=== PATIENT | male | born 1955 | race Caucasian/White ===

== ENCOUNTER 2016-09-29 13:57 | Inpatient (IN) | payer OTHER ==
[~2016-09-29] VITALS: Ht 172.7 cm; Wt 70.6 kg
[2016-09-29] MEDS ORDERED: SODIUM CHLORIDE 0.9% 250 ML IV ONE (16:00)
[2016-09-29] MEDS ORDERED: CEFTRIAXONE 1 GM VIAL ONE (16:00)
[2016-09-29] MEDS ORDERED: AZITHROMYCIN 500 MG VIAL IV ONE (16:00)
[2016-09-29] MEDS ORDERED: SODIUM CHLORIDE 0.9% 100 ML IV ONE (16:01)
[2016-09-29] MEDS ORDERED: NEB-ALBUTEROL 2.5 MG/3 ML INH ONE ×2 (16:34→17:46)
[2016-09-29] MEDS ORDERED: DUONEB INH ONE (17:46)
[2016-09-29] MEDS ORDERED: MORPHINE 4 MG/ML SYR ONE (18:21)
[2016-09-29] MEDS ORDERED: SALINE FLUSH 10 ML FLUSH PRN (19:35)
[2016-09-29] MEDS ORDERED: NICOTINE 21 MG/24 HR TRANSDERM ONE (20:24)
[2016-09-29 22:13] VITALS: BP_SYST 106; BP_SYST 110; RESP 18; TEMP 98.4
[2016-09-29 22:15] VITALS: Ht 172.7 cm; Wt 70.6 kg
[2016-09-29] MEDS: DUONEB INH SCH (23:36)
[2016-09-29] MEDS: NEB-BROVANA 15 MCG/2 ML INH SCH (23:37)
[2016-09-30 00:27] VITALS: RESP 16
[2016-09-30] MEDS: BACLOFEN 10 MG TAB PO PRN ×3 (02:12→17:56)
[2016-09-30] MEDS: DUONEB INH SCH ×6 (02:29→23:26)
[2016-09-30 04:19] VITALS: BP_SYST 102; RESP 20; TEMP 97.5
[2016-09-30] MEDS: Hydrocodone/APAP 10/325 MG TAB PO PRN ×4 (04:27→23:23)
[2016-09-30] MEDS: SODIUM CHLORIDE 0.9% FLUSH BAG 500 ML IV SCH (04:29)
[2016-09-30] MEDS ORDERED: MISSING DOSE XX ONE ×2 (05:05→23:15)
[2016-09-30] MEDS: DIPHENHYDRAMINE 25 MG CAP PO PRN ×2 (06:44→20:07)
[2016-09-30] MEDS: SALINE FLUSH 10 ML FLUSH SCH ×3 (06:59→20:07)
[2016-09-30] MEDS: NEB-BROVANA 15 MCG/2 ML INH SCH ×2 (07:19→19:45)
[2016-09-30 07:48] VITALS: BP_SYST 134; RESP 20; TEMP 98.1
[2016-09-30] MEDS: ENOXAPARIN 40 MG/0.4 ML SYR SUBQ SCH (09:00)
[2016-09-30] MEDS: NICOTINE 21 MG/24 HR TRANSDERM SCH (09:57)
[2016-09-30] MEDS: CEFTRIAXONE 1 GM in SODIUM CHLORIDE 0.9% 50 ML IV SCH (09:57)
[2016-09-30] MEDS: amLODIPine 5 MG TAB PO SCH (09:58)
[2016-09-30] MEDS: PAROXETINE HCL 10 MG TAB PO SCH (09:59)
[2016-09-30] MEDS: BUSPIRONE HCL 15 MG TAB PO SCH ×2 (09:59→20:07)
[2016-09-30] MEDS: GABAPENTIN 600 MG TAB PO SCH ×3 (10:00→20:07)
[2016-09-30] MEDS: GUAIFEN/DM 600/30 TAB PO SCH (10:00)
[2016-09-30 11:10] VITALS: BP_SYST 109; RESP 18; TEMP 98.5
[2016-09-30] MEDS ORDERED: ONDANSETRON 4 MG VIAL IV PUSH PRN (12:25)
[2016-09-30 16:36] VITALS: BP_SYST 113; RESP 20; TEMP 98.9
[2016-09-30 20:03] VITALS: BP_SYST 125; RESP 18; TEMP 98.4
[2016-10-01] MEDS: DUONEB INH SCH ×4 (02:30→15:00)
[2016-10-01] MEDS: DIPHENHYDRAMINE 25 MG CAP PO PRN (02:36)
[2016-10-01] MEDS: BACLOFEN 10 MG TAB PO PRN (02:36)
[2016-10-01 04:02] VITALS: BP_SYST 133; RESP 18; TEMP 97.3
[2016-10-01] MEDS: SODIUM CHLORIDE 0.9% FLUSH BAG 500 ML IV SCH (05:46)
[2016-10-01] MEDS: Hydrocodone/APAP 10/325 MG TAB PO PRN (05:47)
[2016-10-01] MEDS ORDERED: MISSING DOSE XX ONE (06:00)
[2016-10-01 07:16] VITALS: BP_SYST 155; RESP 18; TEMP 97.8
[2016-10-01] MEDS: NEB-BROVANA 15 MCG/2 ML INH SCH (07:33)
[2016-10-01] MEDS: CEFTRIAXONE 1 GM in SODIUM CHLORIDE 0.9% 50 ML IV SCH (08:57)
[2016-10-01] MEDS: SALINE FLUSH 10 ML FLUSH SCH (08:57)
[2016-10-01] MEDS: GABAPENTIN 600 MG TAB PO SCH (08:57)
[2016-10-01] MEDS: BUSPIRONE HCL 15 MG TAB PO SCH (08:58)
[2016-10-01] MEDS: GUAIFEN/DM 600/30 TAB PO SCH (08:58)
[2016-10-01] MEDS: ENOXAPARIN 40 MG/0.4 ML SYR SUBQ SCH (08:58)
[2016-10-01] MEDS: PAROXETINE HCL 10 MG TAB PO SCH (08:58)
[2016-10-01] MEDS: amLODIPine 5 MG TAB PO SCH (08:58)
[2016-10-01] MEDS: NICOTINE 21 MG/24 HR TRANSDERM SCH (09:02)
[2016-10-01 11:50] VITALS: BP_SYST 125; RESP 18; TEMP 98.4
[2016-10-01 15:52] VITALS: BP_SYST 129; RESP 18; TEMP 98.9
[2016-10-01 16:06] VITALS: BP_SYST 129; RESP 18; TEMP 98.9
[2016-10-01] MEDS ORDERED: METOCLOPRAMIDE 10 MG/2 ML VIAL IV PUSH ONE (16:20)
== END 2016-10-01 17:13 | disposition home health service (06) | DRG 189 ==
LOC: ER 13:57 → EMR 19:35 → ENPENDDIS 19:35 → 4NT 20:59
PROVIDERS: ADMIT Internal Medicine; ATTEND Internal Medicine
DX: J96.01 Acute respiratory failure with hypoxia (principal); G12.21 Amyotrophic lateral sclerosis; J18.9 Pneumonia, unspecified organism; J44.0 Chronic obstructive pulmonary disease with (acute) lower respiratory infection; F17.210 Nicotine dependence, cigarettes, uncomplicated; I10 Essential (primary) hypertension
CPT/HCPCS: 36415; 71020; 80053; 81001; 82803; 83605; 85025; 87040; 87278; 87299; 87804; 94640; 94799; 96365; 96367; 96375; 99232; 99233; 99239